=== PATIENT | female | born 1940 | race Caucasian/White ===

== ENCOUNTER 2017-10-01 10:09 | Emergency (ER) | payer MEDICARE ==
[2017-10-01 10:09] VITALS: BMI 27.3
[2017-10-01] MEDS ORDERED: Sodium Chloride 0.9% 500 ML IV ONE (11:14)
[2017-10-01 11:39] LABS: BASO # 0.1 K/uL (0.0-0.2); BASO % 0.7 % (0.0-2.0); EOS % 0.2 % (0.0-4.0); HEMOGLOBIN 13.3 g/dL (11.0-16.0); LYMPH # 2.1 K/uL (1.0-4.3); MEAN CELL VOLUME 94.4 fL (81.0-99.0); MEAN CORPUSCULAR HGB CONC 34.9 g/dL (33.0-37.0); MEAN PLATELET VOLUME 7.7 fL (7.2-11.7); MONO # 1.1 K/uL (0.0-0.8); MONO % 6.4 % (0.0-10.0); NEUT % 80.7 % (50.0-75.0); RBC 4.03 Mil/uL (3.80-5.20); RED CELL DISTRIBUTION WIDTH 12.5 % (11.5-14.5); WHITE BLOOD COUNT 17.4 K/uL (4.8-10.8)
[2017-10-01 11:47] LABS: URINE BACTERIA RARE (<OCC); URINE BILIRUBIN NEGATIVE (NEGATIVE); URINE BLOOD 1+ (NEGATIVE); URINE CLARITY Clear (Clear); URINE COLOR Yellow (YELLOW); URINE GLUCOSE (UA) NORMAL (Normal); URINE LEUKOCYTE ESTERASE NEG Leu/uL (Negative); URINE PROTEIN NEGATIVE (NEGATIVE); URINE UROBILINOGEN NORMAL mg/dL (0.2-1.0)
[2017-10-01 11:51] LABS: ALBUMIN 3.9 g/dL (3.5-5.0); ALT/SGPT 18 U/L (9-52); AST/SGOT 21 U/L (14-36); BLOOD UREA NITROGEN 12 mg/dL (7-17); CALCIUM 9.6 mg/dl (8.6-10.4); GFR AFRICAN-AMERICAN > 60; GFR NON-AFRICAN AMERICAN > 60; LIPASE 39 U/L (23-300)
--- NOTE | 2017-10-01 11:52 | C.PDOC ---
History Of Present Illness 77 y/o female, w/PMHx of HTN, presents to the ER complaining of headache, nausea , vomiting, abdominal pain, and constipation which has been present since last night. Patient is also complaining of subjective fever and chills. Patient denies having dysuria, hematuria, cough, and SOB. Of note, patient is afebrile by mouth upon arrival. Time Seen by Provider: 10/01/17 11:03 Chief Complaint (Nursing): GI Problem History Per: Patient History/Exam Limitations: no limitations Onset/Duration Of Symptoms: Days Current Symptoms Are (Timing): Still Present Severity: Moderate Past Medical History Reviewed: Historical Data, Nursing Documentation, Vital Signs Vital Signs: Last Vital Signs Temp 100.4 F H 10/01/17 14:12 Pulse 75 10/01/17 14:12 Resp 16 10/01/17 14:12 BP 135/52 L 10/01/17 14:12 Pulse Ox 96 10/01/17 17:09 - Medical History PMH: Gastritis, HTN, Hypercholesterolemia, Hyperlipidemia Denies: Anxiety, HIV, Chronic Kidney Disease Other Surgeries: Hx of surgeries Family History: States: No Known Family Hx - Social History Hx Alcohol Use: No Hx Substance Use: No Review Of Systems Except As Marked, All Systems Reviewed And Found Negative. Constitutional: Positive for: Fever (subjective fever), Chills Respiratory: Negative for: Cough, Shortness of Breath Gastrointestinal: Positive for: Nausea, Vomiting, Abdominal Pain, Constipation Genitourinary: Negative for: Dysuria, Hematuria Neurological: Positive for: Headache Physical Exam - Physical Exam Appears: Non-toxic, No Acute Distress, Other (awake,alert, cooperative) Skin: Normal Color, Warm Head: Atraumatic, Normacephalic Eye(s): bilateral: Normal Inspection Ear(s): Bilateral: Normal Nose: Normal Oral Mucosa: Moist Throat: Normal, No Erythema, No Exudate Neck: Supple Chest: Symmetrical Cardiovascular: Rhythm Regular Respiratory: Normal Breath Sounds, No Rales, No Rhonchi, No Wheezing Gastrointestinal/Abdominal: Normal Exam, Soft, Tenderness (mild diffuse tenderness) Neurological/Psych: Oriented x3, Normal Speech ED Course And Treatment - Laboratory Results Result Diagrams: 10/01/17 11:31 10/01/17 11:31 O2 Sat by Pulse Oximetry: 96 (RA) Pulse Ox Interpretation: Normal Medical Decision Making Medical Decision Making: Plan: --Labs --UA --Pepcid IV --Zofran IV --IV Fluids Updates: On re-evaluation, patient still has a headache. Patient feeling much better. Plan to d/c. She has follow up with PMD tomorrow. Disposition Counseled Patient/Family Regarding: Studies Performed, Diagnosis, Need For Followup - Disposition Referrals: Elmer Antonio MD [Medical Doctor] - Disposition: HOME/ ROUTINE Disposition Time: 17:01 Condition: STABLE Instructions: Fever, Adult (DC) Forms: Gen Discharge Inst [facility], [facility] (Tristanian) - POA Present On Arrival: None - Clinical Impression Clinical Impression: Fever, Vomiting - Scribe Statement The provider has reviewed the documentation as recorded by the Alejandraibe Joyce Mendez Provider Attestation: All medical record entries made by the Scribe were at my direction and personally dictated by me. I have reviewed the chart and agree that the record accurately reflects my personal performance of the history, physical exam, medical decision making, and the department course for this patient. I have also personally directed, reviewed, and agree with the discharge instructions and disposition.
[2017-10-01 11:54] LABS: SQUAMOUS EPITHIAL 5 /hpf (0-5)
[2017-10-01 14:13] VITALS: TEMP 100.4
--- NOTE | 2017-10-01 15:08 | RAD ---
PROCEDURE: CHEST RADIOGRAPH, 1 VIEW HISTORY: SOB COMPARISON: 09/13/2014 FINDINGS: LUNGS: Clear. PLEURA: No pneumothorax or pleural fluid seen. CARDIOVASCULAR: No radiographic findings to suggest acute or significant cardiovascular disease. OSSEOUS STRUCTURES: No significant abnormalities. VISUALIZED UPPER ABDOMEN: Normal. OTHER FINDINGS: None. IMPRESSION: No active disease. No acute/significant interval changes.
[2017-10-01 17:03] VITALS: O2SAT 96
[2017-10-01 17:32] VITALS: BP 134/63; PULSE 84; RESP 20
== END 2017-10-01 17:33 | disposition home or self-care (01) ==
LOC: C.ER 10:09
DX: R50.9 Fever, unspecified (principal); R11.10 Vomiting, unspecified; E78.00 Pure hypercholesterolemia, unspecified; I10 Essential (primary) hypertension; E78.5 Hyperlipidemia, unspecified
CPT/HCPCS: 71045; 80053; 81001; 83690; 85025; 87086; 96361; 96374; 99284; J2405; J7040